=== PATIENT | male | born 1960 | race Caucasian/White ===

== ENCOUNTER 2016-05-18 18:59 | Inpatient (IN) | payer OTHER ==
[~2016-05-18] VITALS: Ht 177.8 cm; Wt 125.0 kg
[2016-05-18] VITALS (7 sets, daily range): BP systolic 123–139; BP diastolic 73–91
--- NOTE | ~2016-05-18 | CATHLAB ---
[facility] [address] [place] [address] INVASIVE PROCEDURE REPORT Name: APOLINAR LAGUNAS Room #: 209-P ADM IN .R.#: [id number] Admission: 05/18/16 Attend Phys: Bar Gentile Discharge: Date of : 60 Date of Service: 05/18/162030 Report #: [id number] THIS REPORT FOR: //name// CC: Zeus Peters DO PROCEDURES: Emergent PTCA of distal RCA occlusion, left ventriculography, coronary angiography and selective renal angiography. DESCRIPTION OF PROCEDURE: The patient brought to the catheterization lab having an inferior wall myocardial infarction. It appears from records had 3 prior RCA stents proximal, mid, distal and LAD stents also previously placed. Right groin prepped and draped in sterile manner. 1% Xylocaine was used for local anesthesia. The patient received some heparin prior and Lipitor and Brilinta. A 6-Turkmen sheath in right femoral artery over the wire. A straight pigtail catheter performed a single BENTLEY arteriogram and AP aortogram. There was an inferior wall lag, EF 45-50% range. FL4 for left coronary system, FR4 for the right coronary system, multiple views and obliques were taken. I utilized a JR4 guide once the occlusion was not in the left system. Additional heparin bolus and Integrilin was given and drip initiated of Integrilin. Utilized a 2.5 x 12 balloon after the distal right was occluded. Once I had some transient bradydysrhythmias fairly profound response to atropine perfusion. This is a reperfusion abnormality reflux. This quickly did resolve. There was some residual clot. I dilated further and then removal of the clot was spontaneously nonexistent. This apparently had been a 2.25 stent placed sometime in 2014. This appears to be under size for this distal vessel. This is rather a large dominant vessel. I utilized a 2.75 x 15 noncompliant balloon and postdilated this entire stent up to 18 atmospheres, which is 2.85 mm. Final result was excellent. There was no significant residual irregularity, which had been noted when I initially opened this segment. This looked to be well opposed to the distal vessel. Then, briskly filled the PDA in the smaller posterior lateral branches. Resolution of the EKG quickly did ensue and his pain had markedly improved. This just revealed discomfort. The patient tolerated well. I utilized a Mynx closure for it with at ACT of 178. The patient tolerated well. Also should note, I utilized a JR4 to engage single bilateral renal arteries appear to be disease in that aorta, but these were patent with mild ostial disease. The patient is stable upon transfer back to CCU. The groin without hematoma. HEMODYNAMICS: Aortic 118/72, LV 140/13. IMPRESSION: 1. Successful PTCA of the distal subacute stent thrombosis of the distal right. Originally placed a 2.25 stent postdilated to 2.85 mm in size. This was Xience stent. Excellent apposition OLGA grade 3 flow, the more proximal vessel with proximal and midvessel stents were patent. Dominant vessel. [facility] [address] [place] [address] INVASIVE PROCEDURE REPORT Name: APOLINAR LAGUNAS Room #: 209-P [facility] IN M.R.#: [id number] Admission: 05/18/16 Attend Phys: Bar Gentile Discharge: Date of : 60 Date of Service: 05/18/162030 Report #: [id number] 2. Left main, free of disease, slight distal tapered narrowing. 3. left anterior descending, appears to have 2 prior stents patent with only mild in-stent restenosis, mid LAD lesion of 60% diffusely diseased around the apex. 4. Circumflex OM nondominant with first large OM branch mildly diseased. There were smaller diffusely diseased circumflex and OM branches. No indication for intervention in the circumflex or LAD distribution. 5. Normal left ventricular size with subtle inferior wall lag, ejection fraction 45-50%, expect improvement. 6. Single bilateral renal arteries with mild ostial disease. 7. Abdominal aorta is mildly ectatic, but not aneurysmal. RECOMMENDATIONS: Continue aggressive risk factor modification. This represents a Plavix, aspirin failure. I suspect there may be some component of under dilatation here originally leading to the late subacute thrombosis. I did not place more metal. Would opt for one of the newer dual antiplatelet agents. We will switch to Effient. I have given load and 10 mg a day with an aspirin. No lifting for 48 hours. No lying in tub, Jacuzzi or garcia for a week. No MRI or dental work for 3 months. Thank you for asking us to assist in the care of this patient. <ELECTRONICALLY SIGNED> By: Milan Barrera MD, FACC 05/20/16902 30 24 Milan Barrera MD, FACC /nt
--- NOTE | ~2016-05-18 | 2DMMODE ---
[facility] [place] [address] 2 D/M-MODE ECHOCARDIOGRAM Name: APOLINAR LAGUNAS Room #: 209-P [facility] IN ..#: [id number] Admission: 05/18/16 Attend Phys: Bar Gentile Discharge: Date of : 60 Date of Service: 05/19/16 1120 Report #: [id number] THIS REPORT FOR: //name// APPROVED REPORT EXAM: Comprehensive 2D, Doppler, and color-flow Echocardiogram Patient Location: Bedside Blood Pressure: 117/68 mmHg HR: 44 bpm Indications Atrial Fibrillation Hypertension/HDD Cardiomyopathy Chest Pain 2D Dimensions LVEF(%): 52.52 (>50%) IVSd: 13.80 (7-11mm) LVOT Diam: 21.00 (18-24mm) LVDd: 50.87 mm PWd: 13.36 (7-11mm) Ascending Aorta: 28.78 mm LVDs: 37.08 (25-40mm) Bar's LVEF: 52.52 % Volumes Left Atrial Volume (Systole) Single Plane 4CH: 67.08 mL LA ESV Index: 67.00 mL/m2 Aortic Valve AoV Peak Tae.: 1.74 m/s AO Peak Gr.: 12.46 mmHg LV Max P.67 mmHg LV Max: 0.96 m/s Mitral Valve MV PHT: 69.65 ms MV E Max Tae.: 0.74 m/s E/A Ratio: 0.71 MV A Tae.: 1.05 m/s MV Decel. Time: 240.16 ms Pulmonary Valve PV Peak Tae.: 1.18 m/s PV Peak Gr.: 5.54 mmHg [facility] [address] [address] 2 D/M-MODE ECHOCARDIOGRAM Name: APOLINAR LAGUNAS Room #: 209-P ADM IN [facility].#: [id number] Admission: 05/18/16 Attend Phys: Bar Gentile Discharge: Date of : 60 Date of Service: 05/19/16 1120 Report #: [id number] Tricuspid Valve RAP Estimate: 5.00 mmHg Left Ventricle Left ventricle is mildly dilated. There is hypokinesis in the basal-mid inferior wall. Mild concentric left ventricular hypertrophy. Left ventricular systolic function is normal. The left ventricular ejection fraction is within the normal range. mild inf base hypokinesis LVEF is 50-55%. Transmitral Doppler flow pattern suggests impaired LV relaxation. Right Ventricle Right ventricle is mildly dilated. The right ventricular systolic function is normal. Atria Left atrium is severely dilated. Right atrium is moderately dilated. Aortic Valve The aortic valve is normal in structure. Trace aortic regurgitation. There is no aortic valvular stenosis. Mitral Valve The mitral valve is normal in structure. Trace mitral regurgitation. Tricuspid Valve The tricuspid valve is normal in structure. There is no tricuspid valve regurgitation noted. Pulmonic Valve The pulmonary valve is normal in structure. Trace pulmonic regurgitation. Great Vessels The aortic root is normal in size. IVC is normal in size and collapses >50% with inspiration. Pericardium There is no pericardial effusion. <Conclusion> Left ventricle is mildly dilated. Mild concentric left ventricular hypertrophy. [facility] [address] [address] 2 D/M-MODE ECHOCARDIOGRAM Name: APOLINAR LAGUNAS Room #: 209-P ADM IN ..#: [id number] Admission: 05/18/16 Attend Phys: Bar Gentile Discharge: Date of : 60 Date of Service: 05/19/16 1120 Report #: [id number] Left ventricular systolic function is normal. The left ventricular ejection fraction is within the normal range. LVEF is 50-55%. Transmitral Doppler flow pattern suggests impaired LV relaxation. Right ventricle is mildly dilated. Left atrium is severely dilated. Right atrium is moderately dilated. The aortic valve is normal in structure. Trace mitral regurgitation. There is no pericardial effusion. The aortic root is normal in size. Left ventricular systolic function is normal. The left ventricular ejection fraction is within the normal range. mild inf base hypokinesis <ELECTRONICALLY SIGNED> By: Milan Barrera MD, [facility] 05/19/16 1120 19 1120 Milan Barrera MD, FACC /INF
--- NOTE | ~2016-05-18 | D ---
[facility] [place] [address] DISCHARGE SUMMARY Name: APOLINAR LAGUNAS Room #: 209-P [facility] IN .R.#: [id number] Admission: 05/18/16 Attend Phys: Zeus Gibbs MD Discharge: 05/20/16 Date of : 60 Report #: [id number] THIS REPORT FOR: //name// CC: Pérez Arroyo MD [facility] Zeus Peters [facility]SE: The patient is a 56-year-old male followed by Dr. Brodie Peters in [place], [place] and Dr. Pérez Arroyo, who was fighting a . A history of documented coronary artery disease, has had five total previous coronary stents. He had a late stent closure of a distal right coronary artery stent, taken emergently to the catheterization lab. This previously by report had been a 2.25. I suspect this vessel significantly grew after the prior interventions. This was a rather large vessel. I was able to cross into the stent and dilate it with a noncompliant balloon up to 2.9 mm in size, yielding 0% residual and OLGA grade 3 flow. I elected not to place more metal. [id number]-[id number] restenosis in the prior LAD stents and the proximal and mid RCA stents were mildly restenosed. He tolerated this well. There was inferior wall hypokinesis; I expect this to improve. He will be discharged to home on dual antiplatelet therapy. So, this did occur on aspirin and Plavix. Not clear if this represents a failure on aspirin and Plavix or possibly the late stent thrombosis under dilated stent. In any event, I have elected to proceed with aspirin and Effient. I was able to get him 30 days free and then some samples and then follow up with Dr. Arroyo in 2 months regarding the long-term plan for dual antiplatelet therapy, which I think should continue indefinitely, but depends on which agents to use. DISCHARGE MEDICATIONS: His other discharge medications will be losartan 50 and full aspirin for 3 months and back down to a baby, Effient 10, Protonix 40 and Lipitor 80. He is moderately bradycardic, so I am opting for no beta saturnino at this point, as his rate is 45-50 at baseline. DISCHARGE INSTRUCTIONS: Low-fat, low-sodium, cholesterol diet. No lifting for 48 hours. Formal cardiac rehab in [place], [place] with [facility] would benefit him. Follow up with Dr. Peters in the next couple of weeks. DISCHARGE DIAGNOSES: 1. Acute inferior wall myocardial infarction. 2. Mild ischemic cardiomyopathy. 3. Hypertension. 4. Asymptomatic bradycardia. 5. Obesity. [address] [address] DISCHARGE SUMMARY Name: APOLINAR LAGUNAS Room #: 209-P DIS IN M.R.#: [id number] Admission: 05/18/16 Attend Phys: Zeus Gibbs MD Discharge: 05/20/16 Date of : 60 Report #: [id number] Thank you for asking me to assist in the care of this patient. <ELECTRONICALLY SIGNED> By: Milan Barrera MD, FACC 05/22/16 0941 0833 1138 Milan Barrera MD, FAC /nt
--- NOTE | ~2016-05-18 | EKG ---
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
--- NOTE | ~2016-05-18 | H ---
[facility] [place] [address] HISTORY AND PHYSICAL Name: BEBOAPOLINAR Deangelo Room #: 209-P ADM IN .R.#: [id number] Admission: 05/18/16 Attend Phys: Zeus Gibbs MD Discharge: Date of : 60 Report #: [id number] THIS REPORT FOR: //name// CC: Krista Peters DO DATE OF SERVICE: 05/18/2016 HISTORY OF PRESENT ILLNESS: A 57-year-old male, who is a patient of Dr. Salazar in [place], presents to the emergency room after trying significant exertion and onset of substernal chest pressure, shortness of breath, approximately 4:30-5:00 today. He was driven to the Emergency room by his cousin. 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 EKG shows ST elevation in inferior leads, sinus bradycardia. He states he has been compliant with his medications. It looks like he back in December 2014 had deployment of a drug-eluting stent, in-stent restenosis in the mid LAD and a drug-eluting stent in the proximal right coronary artery, which was a 3.0 x 12 Xience. It looks like that was his last intervention. EF apparently mildly was normal. He has been compliant with medications. He was given aspirin and heparin and Brilinta 160 in the emergency room at [place]. We are trying to confirm that. HOME MEDICATIONS: Lipitor 20 mg, lisinopril, aspirin, Plavix, allopurinol. PAST MEDICAL HISTORY: Positive for coronary artery disease, prior limited infarct, gout, hypertension, hypercholesterolemia, 5 total coronary stents. PAST SURGICAL HISTORY: Total knee replacement. FAMILY HISTORY: Father had a heart attack and DJD. SOCIAL HISTORY: He still works at [employer]. He is not . He has 2 children. No alcohol or tobacco. Not a smoker. REVIEW OF SYSTEMS: Perhaps some hesitancy and nocturia he states. PHYSICAL EXAMINATION: GENERAL: He is still having some moderate discomfort, chest pain with an ST elevation in inferior leads. VITAL SIGNS: Blood pressure 158/86, pulse 60 and regular. HEENT: Eyes reveal xanthelasmas. Pharynx is clear. NECK: Shows preserved upstrokes without JVD or bruits. LUNGS: Clear anteriorly. CARDIOVASCULAR: Regular rate and rhythm, S1, S2, bradycardic. ABDOMEN: Obese, nontender. EXTREMITIES: Reveal trace of nonpitting edema. [facility] [address] [place] [address] HISTORY AND PHYSICAL Name: APOLINAR LAGUNAS Room #: 209-P [facility] IN [facility]#: [id number] Admission: 05/18/16 Attend Phys: Zeus Gibbs MD Discharge: Date of : 60 Report #: [id number] NEUROLOGIC: Nonfocal. SKIN: Warm and dry without xanthoma or ulcer. Mild venous stasis changes. ASSESSMENT: 1. Acute inferior wall myocardial infarction. 2. Coronary artery disease with history of multiple stents, most recently December 2014 with LAD and RCA stents placed. 3. Hypertension. 4. Hypercholesterolemia. 5. Obesity. 6. Strong family history of premature coronary artery disease. PLAN: The patient was given aspirin, Brilinta, Lipitor 80 here. Would continue with heparin and probably Integrilin bolus and drip and the risks, benefits, alternatives were discussed. We will proceed on emergently. <ELECTRONICALLY SIGNED> By: Milan Barrera MD, FACC 05/20/16903 30 25 Milan Barrera MD, FACC /nt
--- NOTE | ~2016-05-18 | EKG ---
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1960 Requested By: Brenna Wagner Order Number: [id number] MD: Waylon Desouza Measurements Intervals [place] Rate: 58 P: 34 MN: 246 QRS: 64 QRSD: 116 T: 108 QT: 423 QTc: 416 Interpretive Statements Sinus rhythm Prolonged MN interval Nonspecific intraventricular conduction delay Inferior infarct, acute (RCA) Probable RV involvement, suggest recording right precordial leads Compared to ECG 08/06/2015 12:32:43 inferior injury pattern now present Electronically Signed On 05-19-2016 15:21:27 CDT by Waylon Desouza [email or web address] <ELECTRONICALLY SIGNED> By: Waylon Desouza MD, [facility] 05/19/16 1521 1858 1858 Waylon Desouza MD, [facility] /EPI
[~2016-05-18 18:59] MED LIST: ADVIL200 M1 PO; ALLOPURINOL 10100 M3 PO; ASPIR 8181 MG PO; ASPIRIN325 PO; ATENOLOL 100MG100 MG PO; ATORVASTATIN CA40 MG PO; CLOPIDOGREL75 MG PO; DOXAZOSIN MESYLA8 MG PO; EFFIENT10 MG PO; ELIQUIS5 MG PO; HYDROCHLOROTHIA25 M2 PO; MULTI VITAMIN1 EACH PO; NORVASC5 MG PO; PACERONE 200 M200 M1 PO; PROTONIX40 M1 PO; RANEXA500 MG PO; ZESTRIL40 MG PO
[2016-05-18 19:30] LABS: ABSOLUTE NEUTROPHILS 7.5 thou/uL (1.4-8.2); BASOPHILS 0.2 % (0.0-2.0); EOSINOPHILS 0.2 % (0.0-3.0); HEMATOCRIT 40.7 % (42.0-52.0); HEMOGLOBIN 13.5 gm/dL (14.0-18.0); LYMPHOCYTES 9.5 % (24.0-44.0); MCH 28.2 pg (26.0-34.0); MCHC 33.1 g/dL (28.0-37.0); MCV 85.1 fL (80.0-100.0); MONOCYTES 5.4 % (1.0-8.0); PLATELET COUNT 130 thou/uL (150-400); POLYS 84.7 % (36.0-66.0); RBC 4.78 mil/uL (4.50-6.00); RDW 13.6 % (10.5-14.5); WBC 8.8 thou/uL (4.0-11.0)
[2016-05-18 19:33] LABS: MANUAL DIFF NO
[2016-05-18 19:40] LABS: CALCIUM 8.8 mg/dL (8.5-10.1); CREATININE 1.4 mg/dL (0.6-1.3); POTASSIUM 3.2 mmol/L (3.5-5.1)
[2016-05-18 19:44] LABS: APTT 41.6 Seconds (24.5-32.8); INR 1.1; PROTIME 11.9 Seconds (9.3-11.4)
[2016-05-18 19:51] LABS: TOTAL BILIRUBIN 0.5 mg/dL (<0.1-1.0); TOTAL PROTEIN 7.4 g/dL (6.4-8.2); TROPONIN-I 0.05 ng/mL (<0.04-0.07)
[2016-05-19] VITALS (8 sets, daily range): BP systolic 97–152; BP diastolic 54–74
[2016-05-19 03:46] LABS: HEMOGLOBIN 12.5 gm/dL (14.0-18.0); MCH 28.2 pg (26.0-34.0); MCHC 32.8 g/dL (28.0-37.0); MCV 85.9 fL (80.0-100.0); RBC 4.43 mil/uL (4.50-6.00); RDW 13.8 % (10.5-14.5)
[2016-05-19 03:59] LABS: CALCIUM 8.3 mg/dL (8.5-10.1); CREATININE 1.1 mg/dL (0.6-1.3); POTASSIUM 3.7 mmol/L (3.5-5.1)
[2016-05-19 04:39] LABS: TROPONIN-I 106.24 ng/mL (<0.04-0.07)
[2016-05-19 09:11] LABS: CHOLESTEROL 100 mg/dL (<200); HDL CHOLESTEROL 41 mg/dL (>40); LDL CHOLESTEROL 47 mg/dL (<100); TC:HDL 2.4 Ratio (Not establshd); TRIGLYCERIDE 60 mg/dL (<150); VLDL 12 mg/dL (<40)
[2016-05-20 04:36] VITALS: BP 123/77
[2016-05-20] MEDS ORDERED: ASPIRIN325 PO (08:25)
[2016-05-20] MEDS ORDERED: EFFIENT10 MG PO (08:26)
[2016-05-20 08:45] VITALS: BP 134/79
[2016-05-20 10:28] VITALS: BP 134/79
== END 2016-05-20 13:09 | disposition home or self-care (01) | DRG 247 ==
LOC: ER 18:59 → 2N 19:30 → CATH 19:30 → TBA 19:31 → CATH 21:12 → 2N 21:12
PROVIDERS: Emergency Medicine; Internal Medicine Cardiovascular Disease
PROC: 4A023N7 Measurement of Cardiac Sampling and Pressure, Left Heart, Percutaneous Approach (ICD-10-PCS; principal; 2016-05-18)
PROC: B4181ZZ Fluoroscopy of Bilateral Renal Arteries using Low Osmolar Contrast (ICD-10-PCS; principal; 2016-05-18)
PROC: 027034Z Dilation of Coronary Artery, One Artery with Drug-eluting Intraluminal Device, Percutaneous Approach (ICD-10-PCS; principal; 2016-05-18)
PROC: B2151ZZ Fluoroscopy of Left Heart using Low Osmolar Contrast (ICD-10-PCS; principal; 2016-05-18)
PROC: B2111ZZ Fluoroscopy of Multiple Coronary Arteries using Low Osmolar Contrast (ICD-10-PCS; principal; 2016-05-18)
DX: I21.19 ST elevation (STEMI) myocardial infarction involving other coronary artery of inferior wall (principal); N17.9 Acute kidney failure, unspecified; E87.6 Hypokalemia; I10 Essential (primary) hypertension; M10.9 Gout, unspecified; E78.5 Hyperlipidemia, unspecified; G89.29 Other chronic pain; M54.9 Dorsalgia, unspecified; I25.10 Atherosclerotic heart disease of native coronary artery without angina pectoris; Z96.652 Presence of left artificial knee joint; I25.5 Ischemic cardiomyopathy; R00.1 Bradycardia, unspecified; E78.00 Pure hypercholesterolemia, unspecified; I48.91 Unspecified atrial fibrillation; E66.9 Obesity, unspecified; Z95.5 Presence of coronary angioplasty implant and graft; Z87.01 Personal history of pneumonia (recurrent); Z68.39 Body mass index [BMI] 39.0-39.9, adult; I25.2 Old myocardial infarction; Z79.899 Other long term (current) drug therapy; Z82.49 Family history of ischemic heart disease and other diseases of the circulatory system; Z82.69 Family history of other diseases of the musculoskeletal system and connective tissue
CPT/HCPCS: 10081